=== PATIENT | male | born 1985 | race Two or more races ===

== ENCOUNTER 2018-09-29 16:58 | Emergency (ER) | payer OTHER ==
[~2018-09-29] VITALS: Ht 175.3 cm; Wt 109.0 kg
[2018-09-29] MEDS ORDERED: ibuprofen tablet 400 MG TABLET PO ONE (18:55)
[2018-09-29] MEDS ORDERED: ibuprofen 200mg tablet PO ONE (19:05)
== END 2018-09-29 19:09 | disposition home or self-care (01) ==
LOC: ER 16:59
DX: S60.221A Contusion of right hand, initial encounter (principal); W01.0XXA Fall on same level from slipping, tripping and stumbling without subsequent striking against object, initial encounter; Y93.89 Activity, other specified; Y92.89 Other specified places as the place of occurrence of the external cause; Y99.8 Other external cause status
CPT/HCPCS: 73130; 99284

== ENCOUNTER 2020-08-02 18:22 | Emergency (ER) | payer MEDICAID ==
[~2020-08-02] VITALS: Ht 175.3 cm; Wt 85.9 kg
[2020-08-02 18:32] VITALS: BP 141/97
[2020-08-02] MEDS ORDERED: LIDOcaine 1% W/epiNEPHrine 1:200,000 10ml vial IJ ONE (19:35)
[2020-08-02] MEDS ORDERED: TETanus/Pertussis (Acell)/Diphther VAC/PF (Tdap-Adult) 0.5ml syringe IMVAC ONE (19:35)
[2020-08-02] MEDS ORDERED: AMOX-422 PO (20:23)
[2020-08-02] MEDS ORDERED: amox tr/potassium clavulanate 875/125mg TAB PO ONE (20:25)
[2020-08-02] MEDS ORDERED: bacitracin 15gm ointment TP ONE (20:25)
[2020-08-02] MEDS ORDERED: acetaminophen 325mg tablet PO ONE (20:25)
== END 2020-08-02 21:08 | disposition home or self-care (01) ==
LOC: ER 18:23
DX: S01.21XA Laceration without foreign body of nose, initial encounter (principal); W54.0XXA Bitten by dog, initial encounter; Y93.89 Activity, other specified; Y92.89 Other specified places as the place of occurrence of the external cause; Y99.8 Other external cause status
CPT/HCPCS: 12002; 12011; 12013; 90471; 90715; 99283

== ENCOUNTER 2020-08-16 18:08 | Emergency (ER) | payer MEDICAID ==
[~2020-08-16] VITALS: Ht 175.3 cm; Wt 88.2 kg
[2020-08-16 18:43] VITALS: BP 156/96
== END 2020-08-16 20:13 | disposition home or self-care (01) ==
LOC: ER 18:13
DX: S01.21XD Laceration without foreign body of nose, subsequent encounter (principal); Z48.02 Encounter for removal of sutures; X58.XXXD Exposure to other specified factors, subsequent encounter
CPT/HCPCS: 99281

== ENCOUNTER 2024-11-03 09:11 | Outpatient (CLI) | payer MEDICAID ==
--- NOTE | 2024-11-03 12:50 | RADIOLOGY REPORT ---
Ultrasound abdomen INDICATION: ELEVATED LFTs Technique: 2-D real-time ultrasound was performed with axial and sagittal images submitted for evalu ation. FINDINGS: The liver is normal in size measuring 16 cm and is echogenic due to steatosis. No focal he patic mass No gallstones. No gallbladder wall thickening Common duct normal in size measuring 0.24 cm. Right kidney 11.5 cm in length without mass stone or hydronephrosis IMPRESSION: 1. Normal right upper quadrant ultrasound
== END 2024-11-03 23:59 | disposition home or self-care (01) ==
LOC: RAD 09:11
PROVIDERS: ATTEND Nurse Practitioner Family
DX: R79.89 Other specified abnormal findings of blood chemistry (principal)
CPT/HCPCS: 76700